=== PATIENT | male | born 1970 | race Caucasian/White ===

== ENCOUNTER → 2017-02-20 | Outpatient (CLI) | payer BC ==
[~2017-02-20] MED LIST: SULF800T23 PO
--- NOTE | 2017-02-20 15:01 | DIAGNOSTIC IMAGING REPORT ---
RIGHT TOE(S) MIN 2 VIEWS HISTORY: 46 years-old Male GREAT TOE PAIN Right acute pain of the right first toe without trauma. Initial exam. COMPARISON: None available. TECHNIQUE: 3 views of the right great toe. FINDINGS: Moderate degenerative changes are present within the first MTP joint. No acute fracture or dislocation identified. No opaque foreign body. IMPRESSION: Moderate osteoarthritis of the first MTP joint without acute fracture or dislocation. The above report was generated using voice recognition software. It may contain grammatical, syntax or spelling errors. Electronically signed by: Arnulfo Rider M.D. 02/20/2017 3:00 PM Dictated Date/Time: 02/20/2017 2:58 PM
== END | disposition home or self-care (01) ==
LOC: C.RAD1850 14:45
PROVIDERS: ATTEND Family Medicine
DX: M19.071 Primary osteoarthritis, right ankle and foot (principal)